=== PATIENT | male | born 1970 | race African-American/Black ===

== ENCOUNTER 2017-09-14 03:51 | Emergency (ER) | payer MEDICAID ==
[2017-09-14 03:57] VITALS: RESP 16; TEMP 98.1
--- NOTE | 2017-09-14 05:02 | EDPHY ---
H & P Stated Complaint: urinary catheter needs to be changed Time Seen by Provider: 09/14/17 04:07 HPI/ROS: HPI The patient presents with concerns about his indwelling catheter. He is [place] in by ambulance [place]. He says his leg bag has ripped and is not functioning properly. He has had the catheter in for about 1 month. He has HIV and apparently had a reaction to a medication he was taking which resulted in urinary incontinence. He is supposed to have the catheter out on September 30. As he does not have any pain or cloudy urine.. REVIEW OF SYSTEMS Constitutional: No fever, no chills. Eyes: No discharge. ENT: No sore throat. Cardiovascular: No chest pain, no palpitations. Respiratory: No cough, no shortness of breath. Gastrointestinal: No abdominal pain, no vomiting. Genitourinary: No hematuria. Musculoskeletal: No back pain. Skin: No rashes. Neurological: No headache. PMHx: History of HIV on antiretrovirals Soc Hx: Homeless PHYSICAL General Appearance: Alert, no distress Eyes: Pupils equal and round no pallor or injection ENT, Mouth: Mucous membranes moist Respiratory: There are no retractions, lungs are clear to auscultation Cardiovascular: Regular rate and rhythm Gastrointestinal: Abdomen is soft and non-tender, no masses, bowel sounds normal Neurological: A&O, moves all extremities Skin: Warm and dry, no rashes Musculoskeletal: Neck is supple non tender Extremities: symmetrical, full range of motion Psychiatric: Patient is oriented X 3, there is no agitation Source: Patient, EMS Exam Limitations: No limitations - Personal History Current Tetanus/Diphtheria Vaccine: Yes Current Tetanus Diphtheria and Acellular Pertussis (TDAP): Yes - Medical/Surgical History Hx Asthma: No Hx Chronic Respiratory Disease: No Hx Diabetes: No Hx Cardiac Disease: No Hx Renal Disease: No Hx Cirrhosis: No Hx Alcoholism: No Hx HIV/AIDS: Yes Hx Splenectomy or Spleen Trauma: No Other PMH: HIV, PTSD - Social History Smoking Status: Current every day smoker Constitutional: Initial Vital Signs Temperature (C) 36.7 C 09/14/17 03:53 Heart Rate 67 09/14/17 03:53 Respiratory Rate 16 09/14/17 03:53 Blood Pressure 137/92 H 09/14/17 03:53 O2 Sat (%) 96 09/14/17 03:53 O2 Delivery Mode Room Air Allergies/Adverse Reactions: carbamazepine [From Tegretol] Allergy (Verified 09/14/17 03:56) ibuprofen [From Motrin] Allergy (Verified 09/14/17 03:56) Home Medications: Medication Instructions Recorded Genvoya Tablet 09/14/17 Medical Decision Making Differential Diagnosis: 46-year-old man with Sylvester catheter in place for urinary retention for the last 1 month after medication side-effect. He presents today brought in by ambulance complaining of a torn leg bag. As he has normal vital signs and is generally well-appearing. Catheter seems to be functioning properly. I met the paramedics at the bedside to obtain their report. Patient feels strongly that he would like to have the catheter removed if possible so we will perform a voiding trial. He is on Keflex currently. I am not suspicious of a urinary tract infection. The patient drink plenty of fluids, there was over 300 mL of urine in his bladder on bladder scan. He was unable to urinate. He will have Sylvester catheter replaced here. He has follow-up with his urologist on September 30. Departure - Departure Disposition: Home, Routine, Self-Care Clinical Impression: Urinary retention Sylvester catheter problem Qualifiers: Encounter type: initial encounter Qualified Code(s): T83.9XXA - Unspecified complication of genitourinary prosthetic device, implant and graft, initial encounter Condition: Good Instructions: Sylvester Catheter Placement and Care (ED) Additional Instructions: Please follow-up with your urologist as planned. Please return to the emergency department if your worse in any way. Referrals: Patient,NotPresent [Primary Care Provider] - As per Instructions
[2017-09-14 06:49] VITALS: BP 132/75; PULSE 78; O2SAT 97
== END 2017-09-14 06:48 | disposition home or self-care (01) ==
PROC: 0T9B70Z Drainage of Bladder with Drainage Device, Via Natural or Artificial Opening (ICD-10-PCS; principal; 2017-09-14)
DX: R33.9 Retention of urine, unspecified (principal); T83.9XXA Unspecified complication of genitourinary prosthetic device, implant and graft, initial encounter; B20 Human immunodeficiency virus [HIV] disease; F17.200 Nicotine dependence, unspecified, uncomplicated; Y82.8 Other medical devices associated with adverse incidents

== ENCOUNTER 2017-11-24 01:04 | Emergency (ER) | payer MEDICAID ==
--- NOTE | 2017-11-24 01:08 | EDPHY ---
H & P Time Seen by Provider: 11/24/17 01:14 HPI/ROS: HPI CHIEF COMPLAINT: Broken Sylvester catheter bag needs replacement HISTORY OF PRESENT ILLNESS: Patient is a very pleasant 47-year-old male HIV positive, has a chronic indwelling Sylvester catheter since July for urinary retention he presents emergency room stating that the Sylvester catheter bag is broken and needs it replaced. He comes from a local senior care. States been broken since last night it is leaking. He denies any urinary symptoms. Denies abdominal pain, denies back pain denies any other complaints. Past Medical History: HIV, urinary retention Past Surgical History: No recent surgery Social History: Denies drugs alcohol tobacco. Resides at a local senior care, homeless. Family History: Noncontributory ROS REVIEW OF SYSTEMS: A comprehensive 10 point review of systems is otherwise negative aside from elements mentioned in the history of present illness. Exam Constitutional appears well nontoxic no acute distress, triage nursing summary reviewed, vital signs reviewed, awake/alert. Eyes normal conjunctivae and sclera, EOMI, PERRLA. HENT normal inspection, atraumatic, moist mucus membranes, no epistaxis, neck supple/ no meningismus, no raccoon eyes. Respiratory clear to auscultation bilaterally, normal breath sounds, no respiratory distress, no wheezing. Cardiovascular rate normal, regular rhythm, no murmur, no edema, distal pulses normal. Gastrointestinal soft, non-tender, no rebound, no guarding, normal bowel sounds, no distension, no pulsatile mass. Genitourinary no CVA tenderness. Musculoskeletal no midline vertebral tenderness, full range of motion, no calf swelling, no tenderness of extremities, no meningismus, good pulses, neurovascularly intact. Skin pink, warm, & dry, no rash, skin atraumatic. Neurologic awake, alert and oriented x 3, AAOx3, moves all 4 extremities equally, motor intact, sensory intact, CN II-XII intact, normal cerebellar, normal vision, normal speech. Psychiatric normal mood/affect. Heme/Lymph/Immune no lymphadenopathy. Differential Diagnosis: Chronic indwelling Sylvester due to urinary retention, need for urinary Sylvester catheter bag replacement. Medical Decision Making: Patient does not want his Sylvester catheter change he wants a bag replacement will provide this for him. Sylvester catheter bag replaced. Leg bag replaced. Source: Patient, EMS - Medical/Surgical History Hx Asthma: No Hx Chronic Respiratory Disease: No Hx Diabetes: No Hx Cardiac Disease: No Hx Renal Disease: No Hx Cirrhosis: No Hx Alcoholism: No Hx HIV/AIDS: Yes Hx Splenectomy or Spleen Trauma: No Other PMH: HIV, PTSD - Social History Smoking Status: Current every day smoker Constitutional: Initial Vital Signs Temperature (C) 36.5 C 11/24/17 01:09 Heart Rate 73 11/24/17 01:09 Respiratory Rate 18 11/24/17 01:09 Blood Pressure 143/98 H 11/24/17 01:09 O2 Sat (%) 93 11/24/17 01:09 O2 Delivery Mode Room Air Allergies/Adverse Reactions: carbamazepine [From Tegretol] Allergy (Verified 11/24/17 01:08) ibuprofen [From Motrin] Allergy (Verified 11/24/17 01:08) Home Medications: Medication Instructions Recorded Genvoya Tablet 09/14/17 Oxycodone HCl 11/24/17 Departure - Departure Disposition: Home, Routine, Self-Care Clinical Impression: Complication of Sylvester catheter Qualifiers: Encounter type: initial encounter Qualified Code(s): T83.9XXA - Unspecified complication of genitourinary prosthetic device, implant and graft, initial encounter Condition: Good Instructions: Sylvester Catheter Placement and Care (ED) Additional Instructions: 1. Return emergency room if you have any worsening symptoms questions or concerns. Referrals: NONE *PRIMARY CARE P,. [Primary Care Provider] - As per Instructions
[2017-11-24 01:10] VITALS: BP 143/98; PULSE 73; RESP 18; TEMP 97.7; O2SAT 93
== END 2017-11-24 01:21 | disposition home or self-care (01) ==
LOC: EDUNIT#
DX: T83.018A Breakdown (mechanical) of other urinary catheter, initial encounter (principal); B20 Human immunodeficiency virus [HIV] disease; F17.200 Nicotine dependence, unspecified, uncomplicated; Y73.2 Prosthetic and other implants, materials and accessory gastroenterology and urology devices associated with adverse incidents

== ENCOUNTER 2017-12-13 07:00 | Emergency (ER) | payer MEDICAID ==
[2017-12-13 07:15] VITALS: RESP 16; TEMP 97.9
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
[2017-12-13 09:21] VITALS: BP 136/74; PULSE 72; O2SAT 96
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
== END 2017-12-13 09:19 | disposition home or self-care (01) ==
LOC: EDUNIT#
PROC: 0T9B70Z Drainage of Bladder with Drainage Device, Via Natural or Artificial Opening (ICD-10-PCS; principal; 2017-12-13)
DX: T83.9XXD Unspecified complication of genitourinary prosthetic device, implant and graft, subsequent encounter (principal); F17.200 Nicotine dependence, unspecified, uncomplicated; Y73.2 Prosthetic and other implants, materials and accessory gastroenterology and urology devices associated with adverse incidents

== ENCOUNTER 2017-12-23 01:09 | Emergency (ER) | payer MEDICAID ==
--- NOTE | 2017-12-23 01:11 | EDPHY ---
H & P Time Seen by Provider: 12/23/17 01:11 HPI/ROS: HPI CHIEF COMPLAINT: Medication refill HISTORY OF PRESENT ILLNESS: 47-year-old male very pleasant, homeless, presents emergency room stating that he has been out of his Flomax for 2 days. He does take a dose every day. Here for medication refill otherwise he has no other complaints. He takes Flomax for chronic urinary retention chronic indwelling Sylvester catheter Past Medical History: HIV, chronic indwelling Sylvester catheter, traumatic brain injury Past Surgical History: A no recent surgery Social History: Homeless Family History: Noncontributory ROS REVIEW OF SYSTEMS: A comprehensive 10 point review of systems is otherwise negative aside from elements mentioned in the history of present illness. Exam Constitutional triage nursing summary reviewed, vital signs reviewed, awake/ alert. Eyes normal conjunctivae and sclera, EOMI, PERRLA. HENT normal inspection, atraumatic, moist mucus membranes, no epistaxis, neck supple/ no meningismus, no raccoon eyes. Respiratory clear to auscultation bilaterally, normal breath sounds, no respiratory distress, no wheezing. Cardiovascular rate normal, regular rhythm, no murmur, no edema, distal pulses normal. Gastrointestinal soft, non-tender, no rebound, no guarding, normal bowel sounds, no distension, no pulsatile mass. Genitourinary no CVA tenderness. Musculoskeletal no midline vertebral tenderness, full range of motion, no calf swelling, no tenderness of extremities, no meningismus, good pulses, neurovascularly intact. Skin pink, warm, & dry, no rash, skin atraumatic. Neurologic awake, alert and oriented x 3, AAOx3, moves all 4 extremities equally, motor intact, sensory intact, CN II-XII intact, normal cerebellar, normal vision, normal speech. Psychiatric normal mood/affect. Heme/Lymph/Immune no lymphadenopathy. Differential Diagnosis: Includes but is not limited to in a particular order medication refill, acute need for Flomax refill Medical Decision Making: Plan for this patient will refill his prescription for Flomax. Return precautions discussed. Understands stay well-hydrated return if further symptoms questions or concerns. Source: Patient - Medical/Surgical History Hx Asthma: No Hx Chronic Respiratory Disease: No Hx Diabetes: No Hx Cardiac Disease: No Hx Renal Disease: No Hx Cirrhosis: No Hx Alcoholism: No Hx HIV/AIDS: Yes Hx Splenectomy or Spleen Trauma: No Other PMH: HIV, PTSD - Social History Smoking Status: Current every day smoker Allergies/Adverse Reactions: carbamazepine [From Tegretol] Allergy (Verified 12/23/17 01:14) ibuprofen [From Motrin] Allergy (Verified 12/23/17 01:14) Home Medications: Medication Instructions Recorded Genvoya Tablet 09/14/17 Oxycodone HCl 11/24/17 Flomax 12/23/17 Tamsulosin HCl [Flomax 0.4 MG (*)] 0.4 mg PO DAILY #30 cap 12/23/17 Departure - Departure Disposition: Home, Routine, Self-Care Clinical Impression: Urinary retention Condition: Good Instructions: Tamsulosin (By mouth) Referrals: NONE *PRIMARY CARE P,. [Primary Care Provider] - As per Instructions Prescriptions: Tamsulosin HCl [Flomax 0.4 MG (*)] 0.4 mg PO DAILY #30 cap
[2017-12-23 01:17] VITALS: BP 134/72; PULSE 90; RESP 16; TEMP 98.1; O2SAT 95
[2017-12-23] MEDS ORDERED: TAMSULOSIN HCL 0.4 MG CAP PO ONE ×2 (01:18→01:20)
== END 2017-12-23 01:21 | disposition home or self-care (01) ==
DX: R33.9 Retention of urine, unspecified (principal); B20 Human immunodeficiency virus [HIV] disease; F17.200 Nicotine dependence, unspecified, uncomplicated